=== PATIENT | male | born 1935 | race Caucasian/White ===

== ENCOUNTER 2016-06-15 11:58 | Emergency (ER) | payer BC, MEDICARE, OTHER ==
--- NOTE | 2016-06-15 17:42 | RAD ---
Indication: LEFT lower back pain and posterior pelvis pain post fall. Comparison: None. Technique: Supine and upright technique AP, lateral, and oblique views lumbar sacral spine. Report: Bone density appears decreased throughout. Alignment is anatomic. No cortical disruption or trabecular impaction to indicate a vertebral body fracture. Oblique views without evidence for spondylolysis. Preserved disc spaces. . 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 Unremarkable soft tissue contours. Atherosclerotic calcification of the abdominal aorta. IMPRESSION: Negative for fracture or traumatic malalignment of the lumbar sacral spine.
--- NOTE | 2016-06-15 17:45 | RAD ---
INDICATION: 8 foot fall. Upper back pain. COMPARISON: December 26, 2013 TECHNIQUE: Dual energy PA and routine lateral views of the chest were obtained. REPORT: Mild anterior compression deformities of the approximate T12 and T8 vertebral bodies are chronic based on comparison with the December 27, 2003 radiographs. No acute thoracic fracture evident. Clear lungs and pleural spaces. Negative for pneumothorax. Upper normal heart size. Unremarkable central pulmonary vasculature and mediastinal contours. IMPRESSION: No traumatic thoracic injury evident.
--- NOTE | 2016-06-15 17:47 | RAD ---
Indication: Posterior pelvis pain post fall from 8 feet. Comparison: Lumbar sacral spine of the same date. Technique: AP pelvis. Report: Negative for pelvic fracture or joint diastases. Normal alignment of the hips in the AP projection. Minimal acetabular marginal osteophytosis. Unremarkable soft tissue contours. IMPRESSION: No traumatic pelvic injury evident.
[2016-06-15] MEDS ORDERED: Acetaminophen TAB* 325 MG PO ONE (18:29)
--- NOTE | 2016-06-15 18:38 | UC ---
Minor Trauma HPI - HPI Summary HPI Summary: 80 yo male s/p a fall of his roof about 11 AM. Was a web check in for LBP He was on his roof and attempting to climb down his ladder Ladder kicked out and he fell flat on his back in about one foot of snow Estimates he was 8 feet in the air c/o LBP, pain left pelvis NO MERCADO/CP/ABD pain mild left leg pain were the ladder hit him - History of Current Complaint Chief Complaint: UCBackPain Stated Complaint: LOW BACK PAIN Time Seen by Provider: 06/15/16 16:18 Hx Obtained From: Patient Onset/Duration: Sudden Onset Onset Of Pain: Immediate Severity Initially: Severe Severity Currently: Moderate Pain Intensity: 7 Pain Scale Used: 0-10 Numeric Mechanism Of Injury: Fall From Height Of: - 8 feet Aggravating Factor(s): Ambulation, Deep Breaths, Movement, Weight Bearing Alleviating Factor(s): Rest Associated Signs And Symptoms: Negative: Loss Of Consciousness, Ecchymosis, Swelling Related History: Positive: Anticoagulants - Allergies/Home Medications Allergies/Adverse Reactions: Allergies Allergy/AdvReac Type Severity Reaction Status Date / Time Acetaminophen Allergy Nausea And Verified 06/15/16 16:14 [From Darvocet-N] Vomiting Hydrocodone Allergy Nausea And Verified 06/15/16 16:14 Vomiting Propoxyphene Allergy Nausea And Verified 06/15/16 16:14 [From Darvocet-N] Vomiting Codeine AdvReac Nausea And Verified 06/15/16 16:14 Vomiting Meperidine [From Demerol HCl] AdvReac Nausea And Verified 06/15/16 16:14 Vomiting Home Medications: Home Medications Aloe Vera (Topical) [Aloe Vera Gel] 99.5 % .SEE ORDER DAILY 06/15/16 [History Confirmed 06/15/16] Cholecalciferol TAB* [Vitamin D TAB*] 2,000 units PO DAILY 06/15/16 [History Confirmed 06/15/16] Coenzyme Q10 (Ubidecarenone) [Coenzyme Q-10] 200 mg PO DAILY 06/15/16 [History Confirmed 06/15/16] Diltiazem CD CAP* [Cardizem CD CAP*] 360 mg PO DAILY 06/15/16 [History Confirmed 06/15/16] Fenofibrate(NF) [Tricor(NF)] 145 mg PO DAILY 06/15/16 [History Confirmed ] Glucosamine-Chondroitin [Glucosamine & Chondroitin 500-400 mg] 3,400 cap PO DAILY 06/15/16 [History Confirmed 06/15/16] Lutein 20 mg PO DAILY 06/15/16 [History Confirmed 06/15/16] Multivitamins/Minerals TAB* [Thera M Plus TAB*] 1 tab PO DAILY 06/15/16 [ History Confirmed 06/15/16] [place]-3 Fatty Acids [[place]-3 Fish Oil] 1,360 cap PO DAILY 06/15/16 [History Confirmed 06/15/16] Potassium Chlor TAB* [Klor Con ER TAB*] 20 meq PO DAILY 06/15/16 [History Confirmed 06/15/16] Ramipril CAP* [Altace CAP*] 2.5 mg PO DAILY 06/15/16 [History Confirmed 06/15/16 ] Rivaroxaban TAB(*) [Xarelto 20 mg] 20 mg PO DAILY 06/15/16 [History Confirmed ] Terazosin CAP* [Hytrin CAP*] 1 mg PO BEDTIME 06/15/16 [History Confirmed ] PMH/Surg Hx/FS Hx/Imm Hx Previously Healthy: No Cardiovascular History Of: Reports: Cardiac Disorders - tachycardia, Hypertension, Atrial Fibrillation - Surgical History Surgical History: Yes Surgery Procedure, Year, and Place: right thumb - Family History Known Family History: Positive: Hypertension - Social History Alcohol Use: None Substance Use Type: None Smoking Status (MU): Former Smoker When Did the Patient Quit Smoking/Using Tobacco: 40 years ago - Immunization History Most Recent Influenza Vaccination: Current for Season Most Recent Tetanus Shot: 2010 Most Recent Pneumonia Vaccination: 06/05/14 Review of Systems Constitutional: Negative Skin: Negative Eyes: Negative ENT: Negative Respiratory: Negative, Other - breath "Knocked out of him" Cardiovascular: Negative Gastrointestinal: Negative Genitourinary: Negative Motor: Negative Neurovascular: Negative Musculoskeletal: Arthralgia, Myalgia Neurological: Negative Psychological: Negative All Other Systems Reviewed And Are Negative: Yes Physical Exam Triage Information Reviewed: Yes Appearance: Well-Appearing, Well-Nourished, Pain Distress Vital Signs: Initial Vital Signs Temp 98.2 F 06/15/16 16:10 Pulse 62 01/02/17 16:10 Resp 16 06/15/16 16:10 BP 135/57 06/15/16 16:10 Pulse Ox 98 06/15/16 16:10 Vital Signs Reviewed: Yes Eyes: Positive: Conjunctiva Clear, Other: - eomi/perrl, fundi benign ENT: Positive: Hearing grossly normal, Other: - neg Vera's sign/no CSF micky/ rhinorrhea. Negative: Nasal congestion, Nasal drainage, Trismus, Muffled/ hoarse voice Neck: Positive: Supple, Tenderness @ - left trapezius, no midline adolfo tenderness Respiratory: Positive: Chest non-tender - no pain with rib springing, Lungs clear, Normal breath sounds, No respiratory distress Cardiovascular: Positive: RRR, No Murmur, Pulses Normal, Brisk Capillary Refill. Negative: Tachycardia, Bradycardia Abdomen Description: Positive: Nontender, No Organomegaly, Soft, Other: - multiple lipomas palpated. Negative: Bruit, CVA Tenderness (R), CVA Tenderness (L), Distended Musculoskeletal: Positive: Strength Intact, ROM Intact, No Edema Neurological Exam: Normal Neurological: Positive: Alert Psychological Exam: Normal Skin Exam: Normal Minor Trauma Course/Dx - Course Course Of Treatment: u dip (-) for RBCs. Pt informed that the most prudent course of treatment would be to send him for evaluation at a trauma center. He declines. He was present for the discussion and they will seek care for new or worsening symptoms - Differential Dx/Diagnosis Provider Diagnoses: Fall. multiple contusions and strains Discharge - Discharge Plan Condition: Stable Disposition: HOME Patient Education Materials: Muscle Strain (ED), Contusion in Adults (ED) Referrals: Torres Modi MD [Primary Care Provider] - As Soon As Possible Additional Instructions: As discussed your evaluation would have been best performed at a trauma center ( [facility]) You had a significant fall You are on a blood thinner Currently your complaints do not include headache or abdominal pain but this does not mean you could not have a serious or even life threatening injury. Sometimes serious bleeding of the brain/abdominal organs /retroperitoneum can evolve slowly If you develop a headache/constant chest pain/shortness of breath/abdominal pain or worsening back pain I think you should call an ambulance If you not blood in your urine get rechecked Try to get in to see your MD this week Images Head: 1 - tender Front/Back of Body, Lg ([place]): 1 - tender 2 - tender left iliac crest 3 - mild tenderness
[2016-06-15 19:01] VITALS: BP 149/74
[2016-06-16 11:02] LABS: Hematocrit 50 % (42-52); Hemoglobin 16.4 g/dl (14.0-18.0); Mean Corpuscular HGB Conc 33 g/dl (31-36); Mean Corpuscular Hemoglobin 30 pg (27-31); Mean Corpuscular Volume 91 fL (80-94); Mean Platelet Volume 10 um3 (7.4-10.4); Red Blood Count 5.47 10^6/ul (4.0-5.4); Red Cell Distribution Width 14 % (10.5-15); White Blood Count 12.4 10^3/ul (3.5-10.8)
[2016-06-16 11:03] LABS: Add Diff/Slide Review? Slide Review Added; Comments Flag Yes
== END 2016-06-15 19:10 | disposition home or self-care (01) ==
LOC: UCCORT 11:58
DX: T14.8 Other injury of unspecified body region (principal); W17.89XA Other fall from one level to another, initial encounter; Y92.9 Unspecified place or not applicable; Z88.5 Allergy status to narcotic agent; Z88.8 Allergy status to other drugs, medicaments and biological substances; Z79.01 Long term (current) use of anticoagulants; I11.9 Hypertensive heart disease without heart failure; I48.91 Unspecified atrial fibrillation; R00.0 Tachycardia, unspecified; Z87.891 Personal history of nicotine dependence
CPT/HCPCS: 36415; 71020; 72110; 72170; 85025; 99212; A9270-GY; G0463

== ENCOUNTER 2016-11-17 07:26 | Day surgery (SDC) | payer BC, MEDICARE ==
[2016-11-17] MEDS ORDERED: Bupivacaine 0.5% W/EPI SDV* 30 ML VIAL ONE (11:00)
[2016-11-17] MEDS ORDERED: Lidocaine 1% INJ* 10 MG/ML 30 ML SDV ONE (11:01)
[2016-11-17] MEDS ORDERED: ceFAZolin 2 GM PREMIX(*) 2 GM/50 ML BAG IVPB ONE (11:37)
[2016-11-17] MEDS ORDERED: fentaNYL* 50 MCG/ML 2 ML VIAL (100 MCG VIAL) ONE (11:43)
[2016-11-17] MEDS ORDERED: Midazolam* 1 MG/ML 5 ML VIAL (5 MG) ONE (11:44)
[2016-11-17] MEDS ORDERED: Propofol* 10 MG/ML 20 ML BTL IV PUSH ONE (13:00)
[2016-11-17] MEDS ORDERED: oxyCODONE/Acetamin 5/325 MG* TAB PO PRN (13:16)
[2016-11-17 13:53] VITALS: BP 134/53
--- NOTE | 2016-11-18 01:13 | OP ---
CC: Torres Modi MD * DATE OF OPERATION: 11/17/16 - [facility] DATE OF : 39 SURGEON: Yuan Holder MD ACTIVITY THERAPIST: MEAGAN [place] ANESTHESIOLOGIST: Dr. De La Rosa. ANESTHESIA: Local MAC. PRE-OP DIAGNOSIS: Left inguinal hernia. POST-OP DIAGNOSIS: Left inguinal hernia. OPERATIVE PROCEDURE: Open repair of left inguinal hernia with mesh. ESTIMATED BLOOD LOSS: Minimal. IV FLUIDS: Crystalloid. SPECIMEN: None. DRAINS: None. COMPLICATIONS: None. COUNTS: The instrument, needle, and sponge counts were correct. DESCRIPTION OF PROCEDURE: The patient was brought to the operating room and placed on the table supine. Sequential compression devices were placed in both lower extremities. Intravenous sedation was administered. His groin was prepped and draped in the usual sterile fashion. He received appropriate antibiotics. Time-out was performed. Local anesthetic was infiltrated as a field block in the left groin and then an oblique incision was created approximately 6 cm long. Subcutaneous tissues were divided with cautery. Crossing veins were divided between clamps and ligated with four absorbable ties. External oblique aponeurosis was identified and additional anesthetic infiltrated beneath this. Aponeurosis was opened along the line of its fibers through the superficial ring and the aponeurosis was reflected back upon itself. The for the ilioinguinal nerve appeared to be quite thin. This was initially dissected out and being preserved in the lateral direction. However, as the dissection proceeded, the patient began coughing and the structures subsequently broke. The proximal end was not able to be identified. The distal end was ligated, divided. The contents of the inguinal canal were then with a quarter-inch Steinauer drain at the level of the pubic tubercle and then indirect inguinal hernia sac was identified. There was also weakness in the floor of the canal. The cord structures were dissected free of the sac, which was twisted upon itself and ligated at the deeper end with a 2-0 Polysorb suture ligature and the distal sac was transected and proximal sac was allowed to retract within the abdominal cavity. Subsequently, the repair was performed with a polypropylene mesh, fashioned into a plug and patch. The plug was placed into the deep space and sutured to the overlying musculature with 2-0 Polysorb. An [place] patch was then sutured to the pubic tubercle, the shelving edge of the inguinal ligament, and the conjoint tendon with interrupted 2-0 Polysorb suture. Tails were fashioned and the mesh laterally to allow the egress of the spermatic cord and the mesh reconstituted laterally with a 2-0 Surgipro. The tails of the mesh were tucked beneath the external oblique aponeurosis laterally and the external oblique aponeurosis was run closed with 2-0 Polysorb. The Hi's was closed with 3-0 Polysorb in interrupted fashion. Skin was closed with 4-0 Monocryl in subcuticular fashion. Steri-Strips were applied. The patient tolerated the procedure well. He was extubated uneventfully and then transferred to the recovery room in stable condition. [id number]/[facility] #: [id number] LETY
== END 2016-11-17 14:30 | disposition home or self-care (01) ==
LOC: OR 07:26
PROVIDERS: ATTEND Surgery
DX: K40.90 Unilateral inguinal hernia, without obstruction or gangrene, not specified as recurrent (principal); I11.9 Hypertensive heart disease without heart failure; I25.2 Old myocardial infarction; I48.91 Unspecified atrial fibrillation; Z79.01 Long term (current) use of anticoagulants; Z87.891 Personal history of nicotine dependence; E78.00 Pure hypercholesterolemia, unspecified; Z85.46 Personal history of malignant neoplasm of prostate; Z88.5 Allergy status to narcotic agent; Z85.820 Personal history of malignant melanoma of skin
CPT/HCPCS: C1781; J0690; J2001; J2250; J2704; J3010

== ENCOUNTER 2018-10-13 19:39 | Emergency (ER) | payer MEDICARE ==
--- OUTSIDE RECORDS SUMMARY | 2018-10-13 20:34 | XMS REPORT | Continuity of Care Document ---
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 Torres Modi MD Primary Care Physician Unavailable Payers Date Identification Numbers Payment Provider Subscriber Policy Number: [id number] [facility] Medicare Raulitolindy Killian PayID: [id number] [address] [address] [place] [address] Effective: 2015 Policy Number: [id number] [facility] Raulitolindy Killian Expires: 2017 PayID: [id number] [address] [address] [place] [address] Expires: 2009 Policy Number: [id number] Medicare Raulito R Constantin PayID: [id number] [address] [address] [place] [address] Expires: 2009 Policy Number: [facility] Raulito Killian [id number] PayID: [id number] [address] [place] [address] Advance Directives Description No Information Available Problems Date Description Provider Status Onset: 07/14/2011 Paroxysmal supraventricular CroftJackie, Active tachycardia MSN, [place] Onset: 07/14/2011 Benign essential hypertension CroftJackie ford, Active MSN, [place] Onset: 07/14/2011 Coronary arteriosclerosis CroftJackie anglin, Active MSN, [place] Onset: 07/14/2011 Hyperlipidemia CroftJackie anglin, Active MSN, [place] Onset: 02/03/2018 Preoperative cardiovascular Fam Moon M.D., Active examination FACC Onset: 09/19/2015 Obstructive sleep apnea syndrome Fam Moon M.D. , Active FACC Onset: 09/19/2015 Chronic obstructive lung disease Fam Moon M.D. , Active FACC Onset: 09/19/2015 Chronic atrial fibrillation Fam Moon M.D., Active FACC Onset: 09/19/2015 Dyspnea Fam Moon M.D., Active FACC Onset: 09/04/2015 Essential hypertension Jackie Croft, Active MSN, [place] Onset: 07/14/2011 Chest pain Jackie Croft, Active MSN, [place] Family History Date Family Member(s) Observation Comments : (age 83 Years) Father due to Natural Causes Father due to CAD () : (age 61 Years) Mother due to Bleeding Ulcers Social History Type Date Description Comments Sex Unknown Marital Status Lives With Carina Diet No Restrictions Occupation Retired [employer] Tobacco Use Start: Unknown End: Quit smoked 9 yrs, 3 ppd Unknown Smoking Status Reviewed: 09/09/17 Quit smoked 9 yrs, 3 ppd ETOH Use Rarely consumes alcohol Tobacco Use Start: Unknown End: Patient is a former Unknown smoker Exercise Does not exercise Type/Frequency Allergies, Adverse Reactions, Alerts Date Description Reaction Status Severity Comments 07/18/2008 Codeine/Acetaminophen Active 07/18/2008 Demerol Active 07/18/2008 Lipitor Active 07/18/2008 Simvastatin Active 07/18/2008 Lovastatin Active Dizzy Niaspan palpitations Active Medications Medication Date Status Form Strength Qnty SIG Indications Ordering Provider Ramipril 09/04/19 Active Capsules 2.5mg 90caps Take 1 I25.10 Croft, 16 Capsule Jackie Every Day JESSICA Fletcher, [place] I10 Cardizem LA 07/14/2011 Active Tablets ER 360mg 90tabs po qd I10 Croft , Jackie 24HR JESSICA Fletcher, [place] Potassium Active Tablets ER 20Meq 120tabs 1 po qd Leonard Moon CR M.D., FACC Lutein Active Capsules 20mg 1 tab qd Unknown Co Q 10 Active Capsules 200mg 1 po qd Unknown Glucosamine Active Tablets 1700mg 2 tabs Unknown Chondroitin qd Ralston-3 Active Capsules 1400mg 1 tab qd Unknown Xarelto Active Tablets 20mg 90tabs 1 by Sarai, rayray Carter M.D., [facility] Fenofibrate Active Tablets 145mg 1 by Unknown mouth every day Fish Oil Active Capsules 1360mg 1 po qd Unknown Terazosin HCL Active Capsules 2mg 1 by Unknown mouth every day Preservision Active Capsules Areds 2 1 by Unknown Areds 2 mouth twice a day Vitamin D Active Tablets 1000Uni 2 by Unknown t mouth every day Amoxicillin 09/07/2018 - Hx Capsules 500mg 14caps 1 tab by J06.9 Lang , Jackie 09/13/2018 mouth Simonetta, twice a MSN, [place] day for one week Metoprolol 02/26/2016 - Hx Tablets 50mg take 1/2 I48.2 Croft, Jackie Tartrate Unknown tablet Simonetta, by mouth MSN, [place] two times daily R06.02 Spiriva 09/03/2015 - Hx Aerosol 2.5mcg/Act 1units take 2 puffs R06.02 Kheti, Respimat Unknown once daily. MD Campbell Ventolin HFA 09/03/2015 - Hx Aerosol 108(90Base) QS take 1-2 R06.02 Kheti, Unknown mcg/Act puffs every Campbell, 6 hours as needed for shortness of breath. Flomax 04/26/2012 - Hx Capsules 0.4mg 30caps po qd Niranjan Unknown oFam M.D., [facility] Zetia 07/14/2011 - Hx Tablets 10mg 30tabs 1 tab by 272.4 Niranjan Unknown mouth every Fam li M.D., [facility] Zetia 09/22/2010 - Hx Tablets 10mg 30tabs 1 po qd 272.4 Croft, Unknown Jackie Gosia saldivar MSN, [place] Metoprolol - Hx Tablets 50mg 1 po bid I48.2 Davidenk Tartrate 02/26/2016 Fam li M.D., [facility] R06.02 Aspirin Ec - Hx Tablets DR 81mg 1 po qd I25.10 Fam Moon 09/04/2015 Gavino Fraser, [facility] I48.91 Ocuvite - Hx Tablets 2 po bid Sarai, Rafia Fraser M.D., [facility] Lutein - Hx Capsules 6mg po qd Sarai, Rafia Fraser M.D., [facility] Cardizem CD - Hx Caps ER 24HR 240m 90ca 1 po qd 401. Lang , Jackie 07/14/2011 g ps 1 Chance, MSN, [place] Nitroglycerin - Hx Tablets Sub 0.4m 25ta 1 tab prn Sarai, Unknown g selvin Fraser M.D., [facility] Vardenafil HCL - Hx Tablets 20mg 1/2 tab Sarai, Unknown po prn Fam Fraser M.D., [facility] Naproxen - Hx Tablets 250m po qd Benjyenjose arul, Unknown g Fam Fraser M.D., [facility] Hydrochlorothiazide - Hx Tablets 25mg 30ta 1 po qd Sarai, Unknown selvin Fraser M.D., [facility] Vitamin E - Hx Capsules 200U 4 tabs po Sarai, Unknown nit agustin Fraser M.D., [facility] Fish Oil - Hx Capsules 1000 90ca po bid Unknown Unknown mg ps Tamsulosin HCL - Hx Capsules 0.4m po qd Unknown Unknown g Naproxen Sodium - Hx Tablets 220m 2 tab po Unknown Unknown g prn Ramipril - Hx Capsules 10mg 1 by I25. Unknown 09/04/2015 mouth 10 every day I10 Aspir-81 - Unknown Hx Tablets DR 81mg 1 by mouth every day Unknown Immunizations Description No Information Available Vital Signs Date Vital Result Comment 09/07/2018 9:24am BP Systolic Sitting Left Arm 136 mmHg BP Diastolic Sitting Left Arm 78 mmHg Heart Rate 90 /min Respiratory Rate 18 /min Height 67 inches 5'7" Weight 212.00 lb BMI (Body Mass Index) 33.2 kg/m2 BSA (Body Surface Area) 2.07 m2 [place] body weight in kilograms 67 kg O2 % BldC Oximetry 96 % Ora 02/03/2018 8:26am BP Systolic Sitting Left Arm 152 mmHg BP Diastolic Sitting Left Arm 74 mmHg Heart Rate 83 /min Respiratory Rate 16 /min Height 67 inches 5'7" Weight 211.00 lb BMI (Body Mass Index) 33.0 kg/m2 BSA (Body Surface Area) 2.07 m2 [place] body weight in kilograms 67 kg O2 % BldC Oximetry 97 % Room air 09/09/2017 11:31am BP Systolic Sitting Left Arm 132 mmHg BP Diastolic Sitting Left Arm 85 mmHg Heart Rate 75 /min Respiratory Rate 18 /min Height 67 inches 5'7" Weight 214.00 lb BMI (Body Mass Index) 33.5 kg/m2 BSA (Body Surface Area) 2.08 m2 [place] body weight in kilograms 67 kg 03/12/2017 1:13pm BP Systolic Sitting Left Arm 142 mmHg BP Diastolic Sitting Left Arm 74 mmHg Heart Rate 68 /min Respiratory Rate 18 /min Height 67 inches 5'7" Weight 213.00 lb BMI (Body Mass Index) 33.4 kg/m2 BSA (Body Surface Area) 2.08 m2 [place] body weight in kilograms 67 kg 10/26/2016 1:08pm BP Systolic Sitting Left Arm 135 mmHg BP Diastolic Sitting Left Arm 62 mmHg Heart Rate 78 /min Respiratory Rate 18 /min Height 67 inches 5'7" Weight 214.00 lb BMI (Body Mass Index) 33.5 kg/m2 BSA (Body Surface Area) 2.08 m2 [place] body weight in kilograms 67 kg 03/31/2016 8:22am BP Systolic Sitting Right Arm 136 mmHg BP Diastolic Sitting Right Arm 78 mmHg Heart Rate 64 /min Respiratory Rate 16 /min Height 67 inches 5'7" Weight 207.00 lb BMI (Body Mass Index) 32.4 kg/m2 BSA (Body Surface Area) 2.05 m2 02/26/2016 9:53am BP Systolic Sitting Left Arm 152 mmHg BP Diastolic Sitting Left Arm 80 mmHg Heart Rate 59 /min Respiratory Rate 16 /min Height 67 inches 5'7" Weight 208.00 lb BMI (Body Mass Index) 32.6 kg/m2 BSA (Body Surface Area) 2.06 m2 10/25/2015 9:15am BP Systolic Standing Resting Right Arm 132 mmHg BP Diastolic Standing Resting Right Arm 86 mmHg Heart Rate 62 /min Height 67 inches 5'7" Weight 212.00 lb BMI (Body Mass Index) 33.2 kg/m2 BSA (Body Surface Area) 2.07 m2 09/19/2015 9:00am BP Systolic Sitting Left Arm 132 mmHg BP Diastolic Sitting Left Arm 78 mmHg Heart Rate 68 /min Height 69 inches 5'9" Weight 211.00 lb BMI (Body Mass Index) 31.2 kg/m2 BSA (Body Surface Area) 2.11 m2 09/04/2015 10:04am BP Systolic Sitting Right Arm 108 mmHg BP Diastolic Sitting Right Arm 62 mmHg Heart Rate 59 /min Respiratory Rate 16 /min Height 69 inches 5'9" Weight 212.00 lb BMI (Body Mass Index) 31.3 kg/m2 BSA (Body Surface Area) 2.12 m2 09/03/2015 2:12pm BP Systolic Sitting Left Arm 142 mmHg BP Diastolic Sitting Left Arm 70 mmHg Heart Rate 66 /min Height 69 inches 5'9" Weight 212.00 lb BMI (Body Mass Index) 31.3 kg/m2 BSA (Body Surface Area) 2.12 m2 O2 % BldC Oximetry 96 % 04/26/2012 3:21pm BP Systolic Sitting Right Arm 154 mmHg BP Diastolic Sitting Right Arm 84 mmHg Heart Rate 76 /min Respiratory Rate 16 /min Height 69.5 inches 5'9.50" Weight 208.00 lb BMI (Body Mass Index) 30.3 kg/m2 07/28/2011 3:09pm BP Systolic Sitting Right Arm 142 mmHg BP Diastolic Sitting Right Arm 82 mmHg Heart Rate 72 /min Respiratory Rate 16 /min Height 69.5 inches 5'9.50" Weight 213.00 lb BMI (Body Mass Index) 31.0 kg/m2 07/14/2011 9:20am BP Systolic Sitting Right Arm 146 mmHg BP Diastolic Sitting Right Arm 78 mmHg Heart Rate 63 /min Respiratory Rate 14 /min Height 69.5 inches 5'9.50" Weight 214.00 lb BMI (Body Mass Index) 31.1 kg/m2 09/22/2010 10:50am BP Systolic Sitting Right Arm 148 mmHg BP Diastolic Sitting Right Arm 68 mmHg Heart Rate 55 /min Respiratory Rate 14 /min Height 69.5 inches 5'9.50" Weight 216.00 lb BMI (Body Mass Index) 31.4 kg/m2 06/17/2009 10:39am Heart Rate 72 /min Respiratory Rate 16 /min Weight 211.00 lb Results Test Date Facility Test Result H/L Range Note LDL Cholesterol 09/07/2011 [facility] Cholesterol 247 mg/dL High 120-200 [address] [place], [place] [id number] [phone] Triglycerides 149 mg/dL 16-231 HDL Cholesterol 40 mg/dL 29-83 LDL-Cholesterol 177 mg/dL 62-185 Liver Function Tests 09/07/2011 [facility] Total Protein 7.1 g/dL 6.3-8.0 [address] [place] [address] [phone] Albumin 3.6 g/dL 3.5-5.0 Globulin 3.5 g/dL 1.9-4.3 Alb/Glob 1.0 ratio Bilirubin,Total 0.6 mg/dL 0.2-1.2 Bilirubin,Direct < 0.1 mg/dL Low 0.1-0.4 Bilirubin,Indirect 0.5 mg/dL 0.0-0.9 Sgot/Ast 20 U/L 16-40 SGPT/Alt 34 U/L 30-65 Alkaline Phosphatase 69 U/L 50-136 Procedures Date Code Description Status 09/07/2018 61385 EKG-Tracing And Report Completed 02/03/2018 14568 EKG-Tracing And Report Completed 09/09/2017 93386 EKG-Tracing And Report Completed 03/24/2016 28493 Stress Test Interpre And Report Only Completed 03/24/2016 52411 Stress Test Physician Super Only Completed 03/24/2016 38521 Stress Test Physician Super Only Completed 03/24/2016 67836 Myocardial Imaging Tomographic Multiple Study AT Rest Or Completed Stress 02/26/2016 48943 EKG-Tracing And Report Completed 10/25/2015 22885 EKG-Tracing And Report Completed 09/13/2015 51301 Echocardiogram Complete Completed 09/13/2015 30733 Stress Test Interpre And Report Only Completed 09/13/2015 89259 Stress Test Physician Super Only Completed 09/13/2015 46717 Stress Test Physician Super Only Completed 09/13/2015 27354 Myocardial Imaging Tomographic Multiple Study AT Rest Or Completed Stress 09/10/2015 81305 Bronchospasm Provocation Evaluation Multi Spirometric Completed Determinati 09/10/2015 03027 Spirometry Completed 09/04/2015 09993 EKG-Tracing And Report Completed 09/04/2015 48549 EKG-Tracing And Report Completed 07/21/2011 92517 Stress Test Interpre And Report Only Completed 07/21/2011 14595 Stress Test Physician Super Only Completed 07/21/2011 92073 Stress Test Physician Super Only Completed 07/21/2011 83753 Myocardial Imaging Tomographic Multiple Study AT Rest Or Completed Stress 07/14/2011 99601 EKG-Tracing And Report Completed 09/22/2010 33721 EKG-Tracing And Report Completed 12/18/2008 67408 EKG-Tracing And Report Completed 07/18/2008 15347 EKG-Tracing And Report Completed 06/11/2008 94514 EKG Interpretation And Report Only Completed 05/16/2008 30945 Doppler ECHO Color Flow Mapping Completed 05/16/2008 13381 Doppler Echocardiogram Complete Completed 05/16/2008 01728 Echocariogram 2D Complete Completed 05/16/2008 30551 Stress Test Interpre And Report Only Completed 05/16/2008 24913 Ejection Fraction Completed 05/16/2008 34948 Myocardial Wall Motion Completed 05/16/2008 49602 Cardiolite Stress/Rest Spect Completed Encounters Type Date Location Provider Dx Diagnosis Office Visit 09/07/2018 Cardiology Office Jackie Croft I48.2 Chronic atrial 9:20a Chance, MSN, fibrillation [place] I25.10 Athscl heart disease of [place] coronary artery w/o ang pctrs I10 Essential (primary) hypertension E78.5 Hyperlipidemia, unspecified J06.9 Acute upper respiratory infection, unspecified Office Visit 02/03/2018 Cardiology Fam Moon I48.2 Chronic atrial 8:20a Office Gavino Fraser, [facility] fibrillation I25.10 Athscl heart disease of [place] coronary artery w/o ang pctrs I10 Essential (primary) hypertension Z01.810 Encounter for preprocedural cardiovascular examination Office Visit 09/09/2017 Cardiology Fam Moon I48.2 Chronic atrial 11:20a Jessica Fraser M.D., [facility] fibrillation I25.10 Athscl heart disease of [place] coronary artery w/o ang pctrs I10 Essential (primary) hypertension J44.9 Chronic obstructive pulmonary disease, unspecified Office Visit 03/12/2017 Cardiology Fam Moon I48.2 Chronic atrial 1:20p Office Gavino Fraser, FAC fibrillation I25.10 Athscl heart disease of [place] coronary artery w/o ang pctrs I10 Essential (primary) hypertension Office Visit 10/26/2016 Cardiology Arline Crofta I48.2 Chronic atrial 1:00p Office Chance MSN, fibrillation [place] I25.10 Athscl heart disease of [place] coronary artery w/o ang pctrs I10 Essential (primary) hypertension E78.5 Hyperlipidemia, unspecified Office Visit 03/31/2016 8:30a Cardiology Office Jackie Croft R06.02 Shortness of Chance, MSN, breath [place] I25.10 Athscl heart disease of [place] coronary artery w/o ang pctrs I48.2 Chronic atrial fibrillation I10 Essential (primary) hypertension J44.9 Chronic obstructive pulmonary disease, unspecified G47.33 Obstructive sleep apnea (adult) (pediatric) E78.5 Hyperlipidemia, unspecified I47.1 Supraventricular tachycardia Office Visit 02/26/2016 9:40a Cardiology Office Jackie Croft I25.119 Athscl heart Chance, JESSICA, disease of [place] cor art w unsp ang pctrs R06.02 Shortness of breath I48.2 Chronic atrial fibrillation I10 Essential (primary) hypertension J44.9 Chronic obstructive pulmonary disease, unspecified G47.33 Obstructive sleep apnea (adult) (pediatric) I47.1 Supraventricular tachycardia E78.5 Hyperlipidemia, unspecified Office Visit 10/25/2015 9:00a Cardiology Office Jackie Croft R06.02 Shortness rupert Fletcher, MSN, breath [place] I48.2 Chronic atrial fibrillation I10 Essential (primary) hypertension J44.9 Chronic obstructive pulmonary disease, unspecified G47.33 Obstructive sleep apnea (adult) (pediatric) I47.1 Supraventricular tachycardia I25.10 Athscl heart disease of [place] coronary artery w/o ang pctrs Office Visit 09/19/2015 9:00a Cardiology Office Fam Moon R06.02 Tracie M.D., [facility] breath I48.2 Chronic atrial fibrillation I10 Essential (primary) hypertension J44.9 Chronic obstructive pulmonary disease, unspecified G47.33 Obstructive sleep apnea (adult) (pediatric) I47.1 Supraventricular tachycardia Office Visit 09/04/2015 Cardiology Jackie Croft I48.91 Unspecified atrial 10:00a Office Chance, JESSICA, fibrillation [place] I25.10 Athscl heart disease of [place] coronary artery w/o ang pctrs I10 Essential (primary) hypertension E78.5 Hyperlipidemia, unspecified I47.1 Supraventricular tachycardia Office Visit 09/03/2015 2:00p Pulmonology Campbell Valadez MD R06.02 Shortness of breath G47.33 Obstructive sleep apnea (adult) (pediatric) F17.211 Nicotine dependence, cigarettes, in remission Office Visit 04/26/2012 Cardiology Fam Moon 272.4 Hyperlipidemia 3:00p Office Gavino Fraser, FACC Other Unspec 401.1 Hypertension Benign 786.59 Pain Chest Other Office Visit 07/28/2011 3:10p Cardiology Office Jackie Corft 786.59 Pain Chest Chance, JESSICA, Other [place] 414.01 Coronary Atherosclerosis [place] 401.1 Hypertension Benign 427.0 PSVT Paroxysmal Supraventricular Tachycardia 272.4 Hyperlipidemia Other Unspec Office Visit 07/14/2011 9:10a Cardiology Office Jackie Croft 786.59 Pain Chest JESSICA Fletcher, Other [place] 414.01 Coronary Atherosclerosis [place] 401.1 Hypertension Benign 427.0 PSVT Paroxysmal Supraventricular Tachycardia 272.4 Hyperlipidemia Other Unspec Office Visit 09/22/2010 Cardiology Jackie Croft 427.0 PSVT Paroxysmal 10:40a Office JESSICA Fletcher, Supraventricular [place] Tachycardia 401.1 Hypertension Benign 414.01 Coronary Atherosclerosis [place] 272.4 Hyperlipidemia Other Unspec Office Visit 06/17/2009 Cardiology Sarai, 785.1 Palpitations 10:20a Office Fam Fraser M.D., FACC Office Visit 09/13/2008 Cardiology Sarai 427.0 PSVT Paroxysmal 9:30a Office Fam Fraser M.D., Supraventricular FACC Tachycardia 414.01 Coronary Atherosclerosis [place] 401.1 Hypertension Benign Office Visit 07/18/2008 Cardiology Sarai 427.0 PSVT Paroxysmal 10:15a Office Fam Fraser M.D., Supraventricular FACC Tachycardia 401.1 Hypertension Benign 272.4 Hyperlipidemia Other Unspec Plan of Treatment Future Appointment(s):09/08/2019 9:40 am - Fam Moon M.D., FACC at [facility]809/07/2018 - Jackie Croft, MSN, FNPI48.2 Chronic atrial fibrillationComments:Monitor. No changes.I25.10 Atherosclerotic heart disease of [place] coronary artery withComments:Continue with medical management.I10 Essential (primary) hypertensionComments:No changes.E78.5 Hyperlipidemia, unspecifiedComments:No changes.J06.9 Acute upper respiratory infection, unspecifiedNew Medication:Amoxicillin 500 mg - 1 tab by mouth twice a day for one weekComments:I will start him on amoxicillin twice daily for one week but I have asked him to contact his oncologist (he does not know her name) to make sure that, with his melanoma treatment, this agent will be acceptableAllFollow up:Follow up visit in one year.
[2018-10-13 20:39] VITALS: BP 151/66
[2018-10-13] MEDS ORDERED: Lidocaine 1% MPF* 2 ML VIAL INJ ONE (20:50)
[2018-10-13] MEDS ORDERED: DOXYcycline CAP(*) 100 MG PO ONE (21:23)
--- NOTE | 2018-10-13 22:01 | UC ---
Skin Complaint HPI - HPI Summary HPI Summary: Pt presnts with c/o tick bite to right lateral upper arm and tender "lump" to left that has been worsening over the last 2 weeks. - History of Current Complaint Chief Complaint: UCSkin Time Seen by Provider: 10/13/18 20:29 Stated Complaint: TICK BITE Hx Obtained From: Patient Onset/Duration: Gradual Onset, Lasting Weeks, Still Present, Worse Since - osnet Skin Exposure Onset/Duration: Weeks Ago Timing: Constant Onset Severity: Mild Current Severity: Moderate Pain Intensity: 0 Pain Scale Used: 0-10 Numeric Location: Discrete - left distal wrist, anterior Character: Redness, Raised, Painful Aggravating Factor(s): Touch Alleviating Factor(s): Nothing Associated Signs & Symptoms: Positive: Tenderness Related History: Insect Bite/Sting - Allergy/Home Medications Allergies/Adverse Reactions: Allergies Allergy/AdvReac Type Severity Reaction Status Date / Time acetaminophen AdvReac n/v Verified 10/13/18 20:32 [From Darvocet-N 100] codeine AdvReac n/v Verified 10/13/18 20:32 hydrocodone AdvReac n/v Verified 10/13/18 20:32 meperidine [From Demerol] AdvReac n/v Verified 10/13/18 20:32 propoxyphene AdvReac n/v Verified 10/13/18 20:32 [From Darvocet-N 100] PMH/Surg Hx/FS Hx/Imm Hx Previously Healthy: Yes Cardiovascular History: Cardiac Disease, Hypertension Cancer History: Other - melanoma - Surgical History Surgical History: Yes Surgery Procedure, Year, and Place: right thumb. right knee arthroscopic . right arm removal malignant melanoma and lymph glands removed right arm with skin graft. tonsillectomy as a child. appendectomy as a child - Family History Known Family History: Positive: Hypertension - Social History Occupation: Retired Lives: With Family Alcohol Use: None Alcohol Amount: 1 per month Substance Use Type: None Smoking Status (MU): Former Smoker Amount Used/How Often: smoked for 9 years, 2ppd Have You Smoked in the Last Year: No When Did the Patient Quit Smoking/Using Tobacco: 1966 - Immunization History Most Recent Influenza Vaccination: Current for Season Most Recent Tetanus Shot: 2010 Most Recent Pneumonia Vaccination: 06/05/14 Vaccination Up to Date: Yes Review of Systems All Other Systems Reviewed And Are Negative: Yes Constitutional: Positive: Negative Skin: Positive: Other - insect bite, "ingrown hair" Eyes: Positive: Negative ENT: Positive: Negative Respiratory: Positive: Negative Cardiovascular: Positive: Negative Gastrointestinal: Positive: Negative Genitourinary: Positive: Negative Motor: Positive: Negative Neurovascular: Positive: Negative Musculoskeletal: Positive: Myalgia Neurological: Positive: Negative Psychological: Positive: Negative Is Patient Immunocompromised?: No Physical Exam Triage Information Reviewed: Yes Appearance: Well-Appearing Vital Signs: Initial Vital Signs Temp 98.3 F 10/13/18 20:32 Pulse 87 10/13/18 20:32 Resp 16 10/13/18 20:32 BP 151/66 10/13/18 20:32 Pulse Ox 99 10/13/18 20:32 Vital Signs Reviewed: Yes Eye Exam: Normal ENT Exam: Normal Dental Exam: Normal Neck exam: Normal Respiratory Exam: Normal Respiratory: Positive: No respiratory distress Cardiovascular Exam: Normal Musculoskeletal Exam: Normal Neurological Exam: Normal Psychological Exam: Normal Skin Exam: Other - right lateral upper arm darkened center presumably tick head , left distal wrist circular ~ 2cm erythematous tender to touch, Procedures - Incision and Drainage Left Anterior Distal Wrist Volar Site: left wrist Anesthesia: Local Instrument(s): Scalpel Course/Dx - Differential Diagnoses - Skin Complaint Differential Diagnoses: Abscess, Foreign Body, Tick Born Illness - Diagnoses Provider Diagnosis: Tick bite, Abscess Discharge - Sign-Out/Discharge Documenting (check all that apply): Patient Departure All imaging exams completed and their final reports reviewed: No Studies - Discharge Plan Condition: Stable Disposition: HOME Prescriptions: DOXYcycline CAP(*) [DOXYcycline 100MG CAP(*)] 100 mg PO Q12H #20 cap Patient Education Materials: Abscess (ED) Referrals: Torres Modi MD [Primary Care Provider] - If Needed - Billing Disposition and Condition Condition: STABLE Disposition: Home
== END 2018-10-13 21:33 | disposition home or self-care (01) ==
LOC: UCCORT 19:39
DX: S40.861A Insect bite (nonvenomous) of right upper arm, initial encounter (principal); L02.413 Cutaneous abscess of right upper limb; W57.XXXA Bitten or stung by nonvenomous insect and other nonvenomous arthropods, initial encounter; Y92.9 Unspecified place or not applicable; I11.9 Hypertensive heart disease without heart failure; Z88.6 Allergy status to analgesic agent; Z88.5 Allergy status to narcotic agent; Z87.891 Personal history of nicotine dependence
CPT/HCPCS: 10060; 99212; A9270-GY; G0463

== ENCOUNTER 2021-11-30 06:32 | Observation (INO) ==
[2021-11-30 06:57] LABS: ABS Basophils 0.1 10^3/ul (0-0.2); ABS Eosinophils 0.2 10^3/ul (0-0.6); ABS Lymphocytes 1.1 10^3/ul (1.0-4.8); ABS Monocytes 0.8 10^3/ul (0-0.8); ABS Neutrophils 2.9 10^3/ul (1.5-7.7); Eosinophil % 4.5 %; Hematocrit 48 % (42-52); Hemoglobin 16.2 g/dL (14.0-18.0); Lymphocyte % 21.4 %; Mean Corpuscular HGB Conc 34 g/dL (31-36); Mean Corpuscular Hemoglobin 31 pg (27-31); Mean Corpuscular Volume 91 fL (80-94); Mean Platelet Volume 8.9 fL (7.4-10.4); Platelet Count 159 10^3/uL (150-450); Red Blood Count 5.29 10^6 /uL (4.18-5.48); Red Cell Distribution Width 15 % (10-15); White Blood Count 5.1 10^3/uL (3.5-10.8)
[2021-11-30 07:04] LABS: INR 2.04 (0.86-1.15)
[2021-11-30 07:32] LABS: Albumin 4.3 g/dL (3.2-5.2); Albumin/Globulin Ratio 1.6 (1-3); Calcium 10.1 mg/dL (8.6-10.3); Globulin 2.7 g/dL (2-4); Potassium 3.8 mmol/L (3.5-5.0); Total Bilirubin 0.7 mg/dL (0.2-1.0); eGFR CKD-EPI 56.8 (>60)
[2021-11-30 08:28] LABS: High Sensitivity Troponin 1 Hr 26 pg/mL (<20)
[2021-11-30] MEDS: Cholecalciferol (VIT D3) 1,000 unit TAB PO SCH (20:19)
[2021-11-30] MEDS: [UNRECOGNIZED DRUG - OTHER] PO SCH (20:21)
[2021-11-30] MEDS ORDERED: Potassium Chlor 20 meq TAB.ER PO SCH (21:00)
[2021-12-01] MEDS ORDERED: Perflutren Lipid Microsphere 3 ML VIAL ONE (09:31)
[2021-12-01] MEDS: Cholecalciferol (VIT D3) 1,000 unit TAB PO SCH (11:23)
[2021-12-01] MEDS: [UNRECOGNIZED DRUG - OTHER] PO SCH (11:23)
[2021-12-01 12:25] VITALS: BP 149/75
[2021-12-01] MEDS ORDERED: Regadenoson 0.4 MG/5 ML SYRINGE ONE (12:30)
== END 2021-12-01 15:30 | disposition home or self-care (01) ==
LOC: ED 06:32 → EDHOLD 06:32 → MEDTELE 13:20
PROVIDERS: ADMIT Student in an Organized Health Care Education/Training Program; ATTEND Student in an Organized Health Care Education/Training Program